=== PATIENT | female | born 1960 | race Caucasian/White ===

== ENCOUNTER 2016-09-23 14:24 | Inpatient (IN) | payer MEDICARE, OTHER ==
--- NOTE | ~2016-09-23 | HP ---
History And Physical [facility] [address] [facility] [place]. [address] NAME: PING LUNA : 56 STATUS : ADM Avis PAT#: [id number] AGE: 56 ADM/REG DATE : 09/23/16 MR#: [id number] REPORT SERV DATE: 09/23/16 DICTATED BY: TAVO BERKOWITZ DATE: 09/23/16 REPORT STATUS : Draft TRANSCRIBED BY: MODL DATE: 09/23/16 DATE OF ADMISSION: 09/23/2016 CHIEF COMPLAINT: Shortness of breath, pedal edema. HISTORY OF PRESENT ILLNESS: Obtained from the patient as well as from emergency room documents. There are no other prior medical records available for us to review. According to the information available, the patient is a 56-year-old woman with past medical history significant for hypertension, significant asthma, apparently on chronic home oxygen therapy for many years, who presented to the emergency room complaining of shortness of breath. The patient's most of her prior workup and medical care has been obtained in [place], [place], where she resides, but she apparently was referred to [facility], Dr. Ibarra, for a cardiac workup as the patient is being a "cleared" for a planned right total knee replacement by Dr. Rolon to be done in the near future here at [facility]. The patient stated that she was referred to Dr. Ibarra, [facility], and she was supposed to be today there, but by the time she made it to his office having some difficulties with exactly parking and where exactly to arrive. She was by her account 15 minutes late, and she was turned down to be seen today, therefore she came to the emergency room as she was short of breath and had pedal edema. Upon arrival in the emergency room, the patient was noticed to be in mild respiratory distress/shortness of breath with mild wheezing noticed by physical exam by emergency room physician and received nebulizer treatment. Furthermore investigations revealed an elevated BNP and pedal edema and therefore, the patient was referred to the Hospitalist Service as admission and workup for dyspnea and shortness of breath. The patient denies any chest pain or palpitations. Denies any fever, any chills, any coughing, any recent change in her medications. She reported "tightness" to the emergency room physician with minimal exertion and with her shortness of breath. The patient stated that she had cardiac catheterization over 15 years ago and supposedly had "leaking valve" at that time. The patient never was told to have a "cardiac condition." She had asthma since childhood and she had chronic home oxygen at 3 L by nasal cannula. Also apparently for over 10 or 15 years when she was told that her oxygen dropped to 83% during nighttime. Again, there are no prior medical records available to us besides the orthopedic surgeries done in [address] Rolon performing left knee arthroscopic surgery. PAST MEDICAL HISTORY: Significant for hypothyroidism; significant for hyperlipidemia; significant for apparently obstructive sleep apnea, on home CPAP machine at home; significant for anxiety and depression; osteoarthritis; GERD; significant for asthma, apparently moderate lifelong since childhood, no recent emergency room visit for asthma exacerbation; and history of obstructive sleep apnea, on home CPAP machine at home. PAST SURGICAL HISTORY: Significant for hysterectomy, cholecystectomy, bilateral tubal ligation in the past, ACDF in 2006, arthroscopic meniscectomy on the left knee in April 2014, history of osteoarthritis and planned right knee replacement apparently scheduled for 10/02/2016 at [facility]. ALLERGIES: MULTIPLE ALLERGIES LISTED IN THE CHART. History And Physical [address] [address] NAME: PING LUNA : 56 STATUS : ADM Avis PAT#: [id number] AGE: 56 ADM/REG DATE : 09/23/16 MR#: [id number] REPORT SERV DATE: 09/23/16 DICTATED BY: TAVO BERKOWITZ DATE: 09/23/16 REPORT STATUS : Draft TRANSCRIBED BY: MODAbhay DATE: 09/23/16 HOME MEDICATIONS: According the list provided, the patient is supposed to take DuoNeb 8 times a day p.r.n. shortness of breath; Combivent and Respimat two puffs inhalation b.i.d.; BuSpar 15 mg p.o. t.i.d.; Klonopin 0.5 mg p.o. q.a.m. and at noon and twice a day and 1 mg p.o. at bedtime; Vivelle 0.05 mg patch twice a week on Thursday and Thursday; Synthroid 125 mcg p.o. daily; Antivert 25 mg p.o. b.i.d.; Prilosec 20 mg p.o. with lunch; Percocet 10/325 one p.o. 6 times a day p.r.n. pain; Lyrica at 25 mg p.o. b.i.d. (please note that the patient has Lyrica listed in allergies but she apparently tolerates 25 mg dose); Crestor 40 mg p.o. at bedtime; Gina-Colace 4 tablets p.o. at bedtime scheduled; Maxzide 25 take half a tablet p.o. daily; fish oil one capsule p.o. t.i.d.; Retaine ophthalmic solution one drop to both eyes 5 times a day; and probiotic one capsule p.o. at bedtime. FAMILY HISTORY: Significant for hypertension. SOCIAL HISTORY: , lives with family. Denies tobacco abuse. She apparently used to smoke in the remote past. Denies alcohol abuse. Denies illicit recreational drug abuse. Presently disabled. REVIEW OF SYSTEMS: As per H and P, otherwise negative in all review of systems. Please note, the comprehensive review of systems was obtained and pertinent positives were including in the H and P. PHYSICAL EXAMINATION: GENERAL: Pleasant, cooperant in mild respiratory distress, presently improved with nebulizer treatment given in the emergency room, very anxious. VITAL SIGNS: Upon arrival in the emergency room, blood pressure 185/83, pulse 80, respiratory rate 24, temperature 98, oxygen saturation 96 to 100% on 3 L via nasal cannula. HEENT: Pupils equal, round, and reactive to light. Extraocular movements intact. Throat, mild erythema. No exudate. NECK: Supple. No JVD. No bruits. No thyromegaly. No lymph nodes. LUNGS: Bilateral air entry with few bibasilar crackles. A few scattered wheezes, apparently improved since initial evaluation in the emergency room. HEART: Positive S1, S2. Regular rate and rhythm. No murmur. No rub. No gallop. PMI not displaced by palpation. ABDOMEN: Positive bowel sounds. Soft, obese, nontender, no guarding, no hepatosplenomegaly. EXTREMITIES: Decreased range of motion. Osteoarthritic changes. No clubbing, no cyanosis. +1 bilateral lower extremity edema up to the mid calves. No calf tenderness. +2 pulses. NEUROLOGIC: Alert and oriented x3. Grossly nonfocal. Anxious. Cranial nerves 2 through 12 grossly intact. Motor strength 5/5 symmetrical bilateral. Deep tendon reflexes 2/2 symmetrical bilateral. BACK: With decreased range of motion, but no focal localized tenderness. No CVA tenderness. SKIN: No bruises, no rashes, no lacerations. SIGNIFICANT LABORATORY DATA: Chest x-ray (personal reading) showed no acute infiltrate. EKG (personal reading) showed normal sinus rhythm at 78 beats per minute. No acute ST elevation. No prior EKG available for comparison. BNP 150. Sodium 142, potassium 3.8, chloride 107, bicarb 31, BUN 11, creatinine 0.77, glucose 105, calcium 9.0. Liver function tests within normal limits. Troponin I less than 0.02. White cell count 10.6, hemoglobin History And Physical [address] [address] NAME: PING LUNA : 56 STATUS : ADM Avis PAT#: [id number] AGE: 56 ADM/REG DATE : 09/23/16 MR#: [id number] REPORT SERV DATE: 09/23/16 DICTATED BY: TAVO BERKOWITZ DATE: 09/23/16 REPORT STATUS : Draft TRANSCRIBED BY: MODL DATE: 09/23/16 12.2, platelet count 257. INR 1.0. ASSESSMENT AND PLAN AND PROBLEM LIST: The patient is a pleasant 56-year-old woman admitted with dyspnea/shortness of breath, likely multifactorial. IMPRESSION: 1. Dyspnea, possible cardiac etiology with shortness of breath, improved with symptomatic treatment and nebulizer treatment. 2. Cardiovascular:. a. Congestive heart failure, likely new onset diastolic dysfunction. b. Hypertension, essential type. c. Pedal edema, new finding/symptoms per patient. All the above, we are going to admit on the Hospitalist Service. We are going to obtain a Cardiology consultation. Strict I's and O's and daily weights with p.o. fluid restriction. Start gentle IV diuresis with Lasix IV, monitor electrolytes, check a 2D echo and obtain old records from the patient's primary care provider. Further evaluation and management as per Cardiology evaluation and consultation. 3. Pulmonary. a. Asthma, possible chronic obstructive pulmonary disease as the patient has been an ex-smoker. b. Obstructive sleep apnea, on home CPAP machine at home. c. Chronic hypoxemic respiratory failure, apparently chronic home oxygen dependent at 3 L by nasal cannula(?). All the above, we are going to continue oxygen supplementation with a target oxygen saturation around 93 to 94%, provide bronchodilator therapy. Encourage usage of her home CPAP machine. Obtain a pulmonology evaluation. 4. For depression and anxiety, probably important component of her clinical presentation, provide emotional support. Continue clonazepam, continue BuSpar. 5. Endocrinologic. a. Hypothyroid with apparently recent FNA biopsy of left thyroid nodule in [place], [place] in [facility]. b. Hyperlipidemia, mixed-type. c. Obesity. For all the above, we are going to continue the patient's home medications including Synthroid, including Crestor and fish oil. Encourage weight loss and dietary changes. Try to obtain prior results and records from the patient's primary care provider. 6. GERD without esophagitis. Continue PPI with the Prilosec/Protonix. Provide dietary changes and antireflux education. 7. Osteoarthritis and deconditioning, provide adequate pain control. Continue her home Percocet. PROGNOSIS: Moderately good for this admission. Discussed with patient and patient's questions were answered in full. Please note, also the patient is a full code at this moment as discussed with the patient at bedside. Please note, also the written H and P and written orders and instructions. History And Physical [address] [address] NAME: PING LUNA : 56 STATUS : ADM Avis PAT#: [id number] AGE: 56 ADM/REG DATE : 09/23/16 MR#: [id number] REPORT SERV DATE: 09/23/16 DICTATED BY: TAVO BERKOWITZ ION DATE: 09/23/16 REPORT STATUS : Draft TRANSCRIBED BY: MODAbhay DATE: 09/23/16 RF/JIM Tavo Berkowitz M.D. / [id number] CC: Katelin Thomas MD
--- NOTE | ~2016-09-23 | CN ---
Consultation Report [facility] [address]. [address] NAME: PING LUNA : 56 STATUS : ADM Avis PAT#: [id number] AGE: 56 ADM/REG DATE : 09/23/16 MR#: [id number] REPORT SERV DATE: 09/24/16 DICTATED BY: KOSTAS BENTON DATE: 09/24/16 REPORT STATUS : Draft TRANSCRIBED BY: MODL DATE: 09/24/16 CONSULT NOTE DATE OF CONSULTATION: 09/24/2016 CHIEF COMPLAINT: Shortness of breath and wheezing. HISTORY OF PRESENT ILLNESS: Mrs. Ping Luna is a 56-year-old white female with a past medical history significant for childhood asthma, chronic hypoxemic respiratory failure, obstructive sleep apnea with CPAP compliance who presents to [facility] emergency room with complaints of worsening shortness of breath and wheezing. It should be noted that the patient has not been hospitalized recently. Mrs. Luna has been seen by multiple pulmonologists in the past. She is currently under the care of Dr. Cynthia Tavarez in [place], [place]. She does require continuous supplemental oxygen at 3 L. The patient is on a pulmonary regimen of Combivent and DuoNeb, which she uses on an as-needed basis. The patient quit smoking, 01/29/2015, prior to this time, she smoked one pack a day for a period of 45 years. She does have known obstructive sleep apnea and has been compliant with CPAP therapy for at least 15 years. She describes her exercise tolerance as being quite limited, having difficulty completing activities of daily living before becoming short of breath. Mrs. Luna has had issues with her right knee and is under consideration of having a total knee replacement under the care of Dr. Rolon. Prior to this surgery, it was felt that she would benefit from a cardiac workup. She did present to Dr. Ibarra's office for evaluation prior to this procedure, but ultimately ended up in the emergency room due to her shortness of breath. Upon arrival in the emergency room, she was found to have a systolic blood pressure of 185. She was afebrile. She had good oxygenation sats. Her white blood cell count was 10,600. Her BNP was 150.3. She did have a chest x-ray, which did not demonstrate any acute pathology. She did receive Lasix and breathing treatments with some improvement in her pulmonary status. For the aforementioned reasons, she has been referred to the Pulmonary Service for further assessment. Currently, the patient's main pulmonary complaint is shortness of breath. This is worse on exertion and relieved by rest. It has been improved with breathing treatments and diuretics. She states that she did have some wheezing when she first came in, but this has resolved as of late. She did have some chest tightness, again this has resolved today. She does confirm childhood asthma as well as previous pneumonias. She denies any purulent sputum production today. The patient does have known hypertension and dyslipidemia. She currently denies any murmurs, angina, or palpitations. She does have longstanding lower extremity edema. She denies any orthopnea, paroxysmal nocturnal dyspnea. Consultation Report [address] [address] NAME: PING LUNA : 56 STATUS : ADM Avis PAT#: [id number] AGE: 56 ADM/REG DATE : 09/23/16 MR#: [id number] REPORT SERV DATE: 09/24/16 DICTATED BY: KOSTAS BENTON DATE: 09/24/16 REPORT STATUS : Draft TRANSCRIBED BY: JIM DATE: 09/24/16 The patient has had some "fullness" in her throat recently. She has undergone a thyroid biopsy with those results still pending. In regard to constitutional symptoms, she currently denies fever, chills, nausea, vomiting, chest pain, or abdominal pain. PAST MEDICAL HISTORY: 1. Hypothyroidism. 2. Dyslipidemia. 3. Anxiety/depression. 4. Osteoarthritis. 5. Gastroesophageal reflux disease. 6. Asthma/COPD. 7. Hypertension. PAST SURGICAL HISTORY: 1. Recent thyroid biopsy. 2. Total abdominal hysterectomy. 3. Cholecystectomy. 4. Bilateral tubal ligation. 5. Left knee surgery on meniscus. 6. Anterior cervical diskectomy and fusion. FAMILY HISTORY: The patient states her father had lung cancer. Her mother had COPD. SOCIAL HISTORY: The patient is . She had three children, only one of which is now living. She had one son in infancy, as well as a 5-year-old child who in a childhood accident. She is currently on disability. She denies any known exposures to dust, silica, or asbestos. Tobacco/alcohol: As previously mentioned, the patient quit, 01/29/2015, prior to this time, she smoked one pack a day for a period of 45 years. She denies any recent alcohol or illicit drug use. MEDICATIONS: 1. DuoNeb. 2. BuSpar 15 mg. 3. Clonazepam 0.5 mg. 4. Estradiol patch. 5. DuoNeb. 6. Levothyroxine 125 mcg. 7. Antivert 25 mg. 8. Omeprazole 20 mg. 9. Endocet 10/325. 10.Pregabalin 25 mg. 11.Rosuvastatin 40 mg. Consultation Report [address] [address] NAME: PING LUNA : 56 STATUS : ADM Avis PAT#: [id number] AGE: 56 ADM/REG DATE : 09/23/16 MR#: [id number] REPORT SERV DATE: 09/24/16 DICTATED BY: KOSTAS BENTON DATE: 09/24/16 REPORT STATUS : Draft TRANSCRIBED BY: JIM DATE: 09/24/16 12.Maxzide 25. ALLERGIES: THE PATIENT HAS AN EXTENSIVE ALLERGY LIST ON THE CHART, WHICH HAS BEEN REVIEWED. REVIEW OF SYSTEMS: Complete review of systems was performed. Pertinent positives and negatives contained within the body of the HPI. PHYSICAL EXAMINATION: VITAL SIGNS: Blood pressure is 122/58, heart rate 78, T-max is 97.8, respiratory rate is 18, SpO2 is 95% on 3 L. GENERAL: Mrs. Luna is an obese 56-year-old white female who is not currently exhibiting any signs of acute distress. SKIN: Skin with appropriate texture and turgor. No rashes, lesions, or ulcers. Nails are clear without cyanosis or clubbing. HEENT: Head: Skull is normocephalic, atraumatic. Face is symmetric. No masses or lesions. Eyes: Sclerae anicteric. Conjunctivae pink without exudates. Extraocular movements are intact. Ears: Auricle and tragus without pain to palpation. Hearing is grossly intact. Nose: Bilateral nasal patency. Throat: The patient has complete dentition in good repair. The patient is Mallampati class 3. NECK: Supple, although redundant tissue appreciated. Thyroid not palpated. LUNGS: Thorax is symmetric with equal chest rise. Inspiratory crackles in the posterior lung pedraza. CARDIOVASCULAR: Regular rate and rhythm. No murmurs, rubs, or gallops. Anterior chest without thrills, heaves, or lifts. ABDOMEN: Soft. Nondistended, nontender. MUSCULOSKELETAL: Full AROM, PROM in all joints. NEUROLOGIC: Cranial nerves 2-12 grossly intact. Good muscle bulk and tone bilaterally. PSYCHIATRIC: The patient demonstrates good judgment and insight. The patient is alert and oriented x3. ACCESSORY DATA: Reveals creatinine 0.93, mag is 1.7. BNP is 54. White blood cell count is 10,600, hemoglobin and hematocrit 13.5 and 41.5. Procalcitonin is 0.05. Chest x-ray does not demonstrate any acute cardiopulmonary process. Echocardiogram reveals estimated left ventricular ejection fraction of 50%-55%. There is a myocardial perfusion scan pending. IMPRESSION: 1. Volume overload. 2. Asthma/chronic obstructive pulmonary disease. 3. Obstructive sleep apnea with CPAP compliance. 4. Chronic hypoxemic respiratory failure secondary to intrinsic lung disease and body habitus. PLAN: 1. At this time, the patient has received diuretic therapy with improvement in her BNP and Consultation Report [address] [address] NAME: PING LUNA : 56 STATUS : ADM Avis PAT#: [id number] AGE: 56 ADM/REG DATE : 09/23/16 MR#: [id number] REPORT SERV DATE: 09/24/16 DICTATED BY: KOSTAS BENTON DATE: 09/24/16 REPORT STATUS : Draft TRANSCRIBED BY: JIM DATE: 09/24/16 overall pulmonary status. 2. In regard to the patient's asthma and COPD, we will place her on a full armamentarium and nebulized medications. Moving forward, she will follow with her established hog counter. She may benefit from pulmonary rehab if that is available to her in her area. 3. In regard to the patient's obstructive sleep apnea, she is compliant with this therapy. She may need a re-titration study in the near future. 4. In regard to chronic hypoxemic respiratory failure, she seems at baseline at this time. We will provide her with humidified oxygen. The aforementioned impression and plan has been discussed with Dr. Montero, who will follow further recommendations. We thank you for this consult and look forward to participating in the care of Mrs. Ping Luna. GBS/MODL Kostas Benton PA-C / [id number] CC: Mani Weber MD
--- NOTE | ~2016-09-23 | DS ---
Discharge Summary [address] [place]. [address] NAME: PING LUNA : 56 STATUS : DIS IN PAT#: [id number] AGE: 56 ADM/REG DATE : 09/25/16 MR#: [id number] REPORT SERV DATE: 09/29/16 DICTATED BY: ADITYA BRANCH DATE: 09/26/16 REPORT STATUS : Draft TRANSCRIBED BY: MODL DATE: 09/26/16 ADMISSION DATE: 09/23/2016 DISCHARGE DATE: 09/26/2016 CONDITION ON DISCHARGE: Stable. DISPOSITION: Discharged to home. ADVICE ON DISCHARGE: To follow up with Cardiology, Pulmonology as scheduled, and also keep the appointment with Dr. Rolon, for scheduled surgery that has already been scheduled for 10/02/2016 for right knee surgery. DIAGNOSES ON DISCHARGE: 1. Shortness of breath/dyspnea secondary to volume overload from likely cor pulmonale, this has resolved. 2. Acute exacerbation of chronic obstructive pulmonary disease, this has resolved. 3. Chronic diagnoses in this patient include COPD, which is chronic. 4. Cor pulmonale with borderline ventricular function with an ejection fraction of 50% to 55% as read in the echocardiogram. 5. Obstructive sleep apnea. The patient is not compliant with CPAP. 6. Chronic hypoxemic respiratory failure for which patient is on oxygen chronically. 7. Generalized anxiety disorder for which patient is benzodiazepine dependent. 8. Chronic low back pain with severe degenerative disk disease of the lower back with herniated intervertebral discs for which patient takes narcotic medications and is narcotic dependent. BRIEF HOSPITAL COURSE: Ms. Luna is a 56-year-old female patient, who was admitted with shortness of breath and volume overload on 09/23/2016. She was admitted, started on diuretics, and echocardiogram was ordered. A Cardiology consult was obtained. The patient also has COPD as this respiratory failure was probably a combination of acute exacerbation of COPD and volume overload from cor pulmonale. Both Cardiology and pulmonology were consulted. Dr. Ibarra saw the patient and Terrance Potts also saw the patient. An echocardiogram that was ordered showed LV systolic function to be 50% to 55% ejection fraction. The patient may have mild right heart failure or cor pulmonale secondary to long- standing COPD at this time which resulted in her volume overload. However, there is nothing to suggest any acute ischemia as of now. The patient also underwent a PET scan or a myocardial PET scan as ordered by Dr. Ibarra. The results of this are pending at this time. The patient's condition remarkably improved and her lungs are extremely clear and she feels better on the day of discharge, and hence, she is being discharged so that she can get her right knee surgery as scheduled on 10/02/[address] Rolon. At this time, the patient has been cleared for surgery, both by Cardiology and by Pulmonology even though she is at high risk for the right knee replacement. The patient states that the pain is so bad and she has so much difficulty walking that she is willing to undergo the surgery. As of now, her discharge medications will be as follows. Discharge Summary [address] [address] NAME: PING LUNA : 56 STATUS : DIS IN PAT#: [id number] AGE: 56 ADM/REG DATE : 09/25/16 MR#: [id number] REPORT SERV DATE: 09/29/16 DICTATED BY: ADITYA BRANCH DATE: 09/26/16 REPORT STATUS : Draft TRANSCRIBED BY: JIM DATE: 09/26/16 HOME MEDICATIONS: All her home medications essentially will be resumed except that she will be on two new medications, Lasix 40 mg p.o. b.i.d. twice a day at least temporarily for the next week or two and K-Dur 10 mEq once a day. I have given her a prescription for both. Other than this, all her home medications will remain the same and these will include: 1. BuSpar 15 mg p.o. t.i.d. for her anxiety. 2. Klonopin as she takes for her anxiety and she takes 1 mg at bedtime and 0.5 mg during daytime on an as-needed basis. 3. Estradiol 0.05 mg topically. 4. Maxzide 37.5/25 one p.o. daily. 5. Levothyroxine 125 mcg p.o. daily. 6. Prilosec 20 mg p.o. daily. 7. Pregabalin 25 mg p.o. b.i.d. 8. Combivent Respimat two puffs twice a day. 9. Meclizine 25 mg p.o. b.i.d. 10.Crestor 40 mg p.o. at bedtime. 11.Fish oil one capsule 3 times a day. 12.Senna four tablets at bedtime. 13.Endocet 10/325 one p.o. four to five times a day, according to patient p.r.n. as she takes this for her chronic severe low back pain from DJD. 14.She also is on DuoNeb. 15.Whether to continue Spiriva or not will be up to Pulmonology. Hence, the patient is discharged home in stable condition with above results as mentioned. The most recent labs I have on this patient include the following: On 09/25/2016, patient's sodium was 137, potassium 3.8, BUN 13, creatinine 1. WBC count 9.2, hemoglobin 13.7, hematocrit 41.6, platelet count of 294. BNP was 54 only, but this was on diuretics. The patient's BNP was elevated at 150 initially. TSH is normal at 1.5. Hence, the patient is discharged home in stable condition, and I have spent about 40 minutes in coordinating discharge care of this patient including [id number] encounter and summarizing this discharge. DICTATED BY: Mani Weber/JIM Aditya Branch M.D. / [id number] CC: Mani Weber MD
--- NOTE | ~2016-09-23 | CN ---
Consultation Report [facility] [address]. [address] NAME: PING LUNA : 56 STATUS : ADM Avis PAT#: [id number] AGE: 56 ADM/REG DATE : 09/23/16 MR#: [id number] REPORT SERV DATE: 09/24/16 DICTATED BY: ANANT PAVON DATE: 09/24/16 REPORT STATUS : Draft TRANSCRIBED BY: MODAbhay DATE: 09/24/16 CARDIOLOGY CONSULTATION DATE OF CONSULTATION: REFERRING REASON: Cardiac evaluation for anticipated orthopedic surgery and shortness of breath. HISTORY OF PRESENT ILLNESS: This is a 56-year-old morbidly obese white female who was initially referred by Dr. Rolon for cardiac evaluation for anticipated elective right knee surgery to [facility]. While she came late for the appointment, she could not be seen that morning and she decided to check into the hospital. She has chronic severe hypoxic respiratory failure, on continuous oxygen, many years. She has reported disabled for orthopedic issues. She has morbid obesity, sleep apnea, hypertension, and reported multiple surgeries on her spine and knees. She is heading for another right knee surgery. She is ambulating with a walker. She has been a heavy smoker until last two years ago. She has chronic dyspnea on exertion with [id number] activity. Denies signs of PND. She is using nocturnal CPAP. The patient has chronic lower extremity edema bilaterally. She has been on triamterene with hydrochlorothiazide for that at home. She also has episodic nonexertional band-type chest pressure, which resolved by itself. Reportedly, she has a normal coronary arteriogram [address] Hernandez in [place], but has been told that she may have some leaky valve. She has occasional palpitations, but no firm diagnosis of arrhythmia was made. She denies any recent syncope. The rest of review of systems is negative. The patient is very poor historian. PAST MEDICAL HISTORY: 1. Chronic respiratory failure, on continuous oxygen of multifactorial etiology. 2. COPD and history of asthma. 3. She has morbid obesity. 4. Poor mobility, patient ambulates with walker due to orthopedic issues. 5. History of several spine surgeries and prior right knee surgery with pending another right knee surgery. 6. Obstructive sleep apnea, on nocturnal CPAP. 7. Hypertension. 8. History of smoking. 9. History of thyroid nodule with recent biopsy. 10.History of palpitations. 11.Depression. SOCIAL HISTORY: The patient is disabled. She is . She has been smoking her entire life until two years ago. She denies drinking alcohol or using street drugs. FAMILY HISTORY: Negative for sudden cardiac deaths or premature coronary artery disease in family. Consultation Report [facility] [id number] [place]. [address] NAME: PING LUNA : 56 STATUS : ADM Avis PAT#: [id number] AGE: 56 ADM/REG DATE : 09/23/16 MR#: [id number] REPORT SERV DATE: 09/24/16 DICTATED BY: ANANT PAVON DATE: 09/24/16 REPORT STATUS : Draft TRANSCRIBED BY: JIM DATE: 09/24/16 ALLERGIES: MULTIPLE INCLUDING PENICILLIN, SULFA, MORPHINE, HYDROCORTISONE, BACITRACIN, AMOXICILLIN, AND BUPRENORPHINE, POLYMYXIN, CODEINE, AND TRAMADOL. HOME MEDICATIONS: Albuterol, BuSpar 15 mg three times a day, Klonopin 0.5 mg twice a day, estradiol, Combivent inhalers, Synthroid 125 mcg once a day, Antivert, Prilosec, Lyrica 25 mg twice a day, Crestor 40 mg once a day, fish oil, and probiotic. PHYSICAL EXAMINATION: GENERAL: No acute distress, morbidly obese female. VITAL SIGNS: Blood pressure 95/50, heart rate 67 and regular. LUNGS: Decreased breath sounds, but no crackles. ABDOMEN: Morbidly obese, distended, nontender. EXTREMITIES: Lower extremity 1+ edema around the ankle with decreased pedal pulses bilaterally. DATA: Electrocardiogram revealed sinus bradycardia, 59 beats per minute. Nonspecific T-wave changes and no arrhythmia. Leukocytosis 10,000. BNP initially , now 58. Troponin x2 negative. Electrolytes are otherwise normal. Chest x-ray, no acute pathology. ASSESSMENT/PLAN: 1. Chronic respiratory failure of multifactorial etiology. 2. Nonexertional chest pain, likely atypical chest pain. 3. Morbid obesity. 4. Orthopedic issues with a pending right knee surgery. The patient has already been put on fluid restriction. She should ambulate. She already received some intravenous Lasix. Due to her body size, she may be best suited with a PET stress and she has a pending echocardiogram today. I have not appreciated a significant murmur, however. Unfortunately, patient had breakfast this morning as we will have to proceed with a PET stress tomorrow. She has not had any cardiac stress testing over the last many years. Thank you for the consult. TRISTEN/JIM Anant Pavon M.D. / [id number] Consultation Report [address] [place]. [address] NAME: PING LUNA : 56 STATUS : ADM Avis PAT#: [id number] AGE: 56 ADM/REG DATE : 09/23/16 MR#: [id number] REPORT SERV DATE: 09/24/16 DICTATED BY: ANANT PAVON DATE: 09/24/16 REPORT STATUS : Draft TRANSCRIBED BY: JIM DATE: 09/24/16 CC: Mani Weber MD
[~2016-09-23 14:24] MED LIST: BUSPAR15 M1 PO; COMBIVENT RESPIM4 GM INH; CRESTOR40 MG PO; DUONEB INH; KLONO1 PO; LEVOTHYROXIN100 MCG PO; LYRICA25 PO; MAX25 PO; MCZ25 PO; PERCOCET1 TA4 PO; PERI-COLACE1 TAB PO; PRILO PO; VIVELLE SY0.05 MG/24 TOP
[2016-09-23 16:51] LABS: BASOPHILS 0.5 %; BASOPHILS ABSOLUTE 0.05 10/3/uL (0.0-0.16); EOSINOPHILS 4.4 %; EOSINOPHILS ABSOLUTE 0.46 10/3/uL (0.0-0.53); HEMOGLOBIN 12.2 g/dL (12.0-16.0); IMMATURE GRANULOCYTES 0.5 %; IMMATURE GRANULOCYTES ABSOLUTE 0.05 10/3/uL (0.0-0.11); LYMPHOCYTES 24.5 %; LYMPHOCYTES ABSOLUTE 2.59 10/3/uL (0.67-4.30); MEAN CORPUS HGB CONC 33.1 g/dL (32.0-36.0); MEAN CORPUSCULAR HEMOGLOB 28.8 pg (26.0-34.0); MEAN CORPUSCULAR VOLUME 87.2 fL (80-100); MEAN PLATELET VOLUME 9.1 fL (9.2-13.0); MONOCYTES 8.3 %; MONOCYTES ABSOLUTE 0.88 10/3/uL (0.21-1.20); NEUTROPHILS 61.8 %; NEUTROPHILS ABSOLUTE 6.53 10/3/uL (2.02-8.40); PLATELET COUNT 257 10/3/uL (150-400); RBC DISTRIBUTION WIDTH 14.5 % (12.0-16.0); RED CELL COUNT 4.23 10/6/uL (4.0-5.6); WHITE BLOOD CELLS 10.6 10/3/uL (4.5-10.5)
[2016-09-23 16:52] LABS: HEMATOCRIT 36.9 % (36.0-48.0); MANUAL DIFF NO %
[2016-09-23 17:05] LABS: PARTIAL THROMBO TIME 27.1 SEC (22.5-37.2); PROTIME (NOT ORD) 13.5 SEC (12.0-14.5)
[2016-09-23 17:10] LABS: A/G RATIO 0.9 (0.7-1.9); ALBUMIN 3.3 G/DL (3.5-5.0); ALKALINE PHOSPHATASE 70 U/L (45-117); BUN (BLOOD UREA NITROGEN) 11 MG/DL (6-23); CHLORIDE, SERUM 107 MMOL/L (96-112); CO2 (CARBON DIOXIDE) 31 MMOL/L (24-34); CREATININE 0.77 MG/DL (0.55-1.02); GFR AFRICAN AMERICAN 99 ML/MIN (>=60); GFR NON AFRICAN AMERICAN 85 ML/MIN (>=60); GLOBULIN 3.6 G/DL (2.5-4.1); GLUCOSE, SERUM 105 MG/DL (60-99); POTASSIUM, SERUM 3.8 MMOL/L (3.5-5.3); SGOT(AST) 22 U/L (5-40); SGPT(ALT) 22 U/L (5-65); SODIUM, SERUM 142 MMOL/L (135-148); TOTAL BILIRUBIN 0.5 MG/DL (0-1.2); TOTAL PROTEIN 6.9 G/DL (6.0-8.5); TROPONIN I <0.02 NG/ML (<0.05)
[2016-09-23] MEDS ORDERED: MCZ25 PO (18:01)
[2016-09-23] MEDS ORDERED: SYN125 PO (18:01)
[2016-09-23] MEDS ORDERED: CRESTOR40 MG PO (18:03)
[2016-09-23] MEDS ORDERED: KLONO1 PO (18:03)
[2016-09-23] MEDS ORDERED: KLONO5 PO (18:03)
[2016-09-23] MEDS ORDERED: PRILO PO (18:04)
[2016-09-23] MEDS ORDERED: BUSPAR15 M1 PO (18:04)
[2016-09-23] MEDS ORDERED: MAX25 PO (18:05)
[2016-09-23] MEDS ORDERED: FISH OIL PO (18:05)
[2016-09-23] MEDS ORDERED: ENDOCET1 TA3 PO (18:06)
[2016-09-23] MEDS ORDERED: PERI-COLACE1 TAB PO (18:06)
[2016-09-23] MEDS ORDERED: COMBIVENT RESPIM4 GM INH (18:07)
[2016-09-23] MEDS ORDERED: LYRICA25 PO (18:07)
[2016-09-23] MEDS ORDERED: [UNRECOGNIZED DRUG - OTHER] OPH (18:08)
[2016-09-23] MEDS ORDERED: VIVELLE SY0.05 MG/24 TOP (18:08)
[2016-09-23] MEDS ORDERED: PROBIOTIC PO (18:09)
[2016-09-23] MEDS ORDERED: DUONEB INH (18:10)
[2016-09-23 20:27] LABS: WBC (NOT ORDERED) (RFLEX) 0 (0-5)
[2016-09-23 20:38] LABS: ASCORBIC ACID (UR NOT ORDER) NEG (NEG); BILIRUBIN, URINE NEGATIVE (NEG); ER URINALYSIS TAT 0 Hrs 16 Mins; KETONE, URINE NEGATIVE (NEG); LEUKOCYTE ESTERASE(NOT OR NEG (NEG); NITRITE (URINE) NEG (NEG)
[2016-09-23 22:00] LABS: CPK 119 U/L (0-200); FREE T4 1.22 NG/DL (0.76-1.46); PHOSPHORUS, SERUM 3.9 MG/DL (2.5-4.5)
[2016-09-23 22:01] LABS: CK-MB 1.6 NG/ML
[2016-09-23 22:08] LABS: PROCALCITONIN <0.05 ng/mL (<0.5)
[2016-09-24 06:44] LABS: BASOPHILS 0.4 %; BASOPHILS ABSOLUTE 0.04 10/3/uL (0.0-0.16); EOSINOPHILS 5.8 %; EOSINOPHILS ABSOLUTE 0.61 10/3/uL (0.0-0.53); HEMATOCRIT 41.7 % (36.0-48.0); HEMOGLOBIN 13.5 g/dL (12.0-16.0); IMMATURE GRANULOCYTES 0.3 %; IMMATURE GRANULOCYTES ABSOLUTE 0.03 10/3/uL (0.0-0.11); LYMPHOCYTES 30.3 %; MANUAL DIFF NO %; MEAN CORPUS HGB CONC 32.4 g/dL (32.0-36.0); MEAN CORPUSCULAR HEMOGLOB 28.8 pg (26.0-34.0); MEAN CORPUSCULAR VOLUME 88.9 fL (80-100); MEAN PLATELET VOLUME 8.9 fL (9.2-13.0); MONOCYTES ABSOLUTE 0.95 10/3/uL (0.21-1.20); NEUTROPHILS 54.2 %; NEUTROPHILS ABSOLUTE 5.72 10/3/uL (2.02-8.40); PLATELET COUNT 259 10/3/uL (150-400); RBC DISTRIBUTION WIDTH 14.4 % (12.0-16.0); RED CELL COUNT 4.69 10/6/uL (4.0-5.6); WHITE BLOOD CELLS 10.6 10/3/uL (4.5-10.5)
[2016-09-24 07:03] LABS: ALBUMIN 3.6 G/DL (3.5-5.0); BUN (BLOOD UREA NITROGEN) 12 MG/DL (6-23); CALCIUM, SERUM 9.2 MG/DL (8.5-10.4); CHOL/HDL RATIO(NOT ORDER) 3.4 (0-5); CHOLESTEROL 164 MG/DL (< 200); CO2 (CARBON DIOXIDE) 30 MMOL/L (24-34); CREATININE 0.93 MG/DL (0.55-1.02); GFR AFRICAN AMERICAN 79 ML/MIN (>=60); GFR NON AFRICAN AMERICAN 68 ML/MIN (>=60); HDL CHOLESTEROL 48 MG/DL (> 49); LDL CHOLESTEROL 85 MG/DL (< 130); NON-HDL CHOLESTEROL 116 MG/DL (< 160); PHOSPHORUS, SERUM 4.2 MG/DL (2.5-4.5); POTASSIUM, SERUM 3.4 MMOL/L (3.5-5.3); SODIUM, SERUM 136 MMOL/L (135-148); TRIGLYCERIDE 158 MG/DL (< 150); TROPONIN I <0.02 NG/ML (<0.05)
[2016-09-24 07:05] LABS: CHLORIDE, SERUM 97 MMOL/L (96-112); CK-MB 1.8 NG/ML; CPK 144 U/L (0-200); GLUCOSE, SERUM 151 MG/DL (60-99)
[2016-09-25 06:40] LABS: BASOPHILS 0.7 %; BASOPHILS ABSOLUTE 0.06 10/3/uL (0.0-0.16); EOSINOPHILS 5.5 %; EOSINOPHILS ABSOLUTE 0.51 10/3/uL (0.0-0.53); HEMATOCRIT 41.6 % (36.0-48.0); HEMOGLOBIN 13.7 g/dL (12.0-16.0); IMMATURE GRANULOCYTES 0.2 %; IMMATURE GRANULOCYTES ABSOLUTE 0.02 10/3/uL (0.0-0.11); LYMPHOCYTES 27.5 %; LYMPHOCYTES ABSOLUTE 2.54 10/3/uL (0.67-4.30); MANUAL DIFF NO %; MEAN CORPUS HGB CONC 32.9 g/dL (32.0-36.0); MEAN CORPUSCULAR VOLUME 87.9 fL (80-100); MEAN PLATELET VOLUME 9.1 fL (9.2-13.0); MONOCYTES 10.6 %; MONOCYTES ABSOLUTE 0.98 10/3/uL (0.21-1.20); NEUTROPHILS 55.5 %; NEUTROPHILS ABSOLUTE 5.12 10/3/uL (2.02-8.40); PLATELET COUNT 294 10/3/uL (150-400); RBC DISTRIBUTION WIDTH 14.1 % (12.0-16.0); RED CELL COUNT 4.73 10/6/uL (4.0-5.6); WHITE BLOOD CELLS 9.2 10/3/uL (4.5-10.5)
[2016-09-25 06:52] LABS: BUN (BLOOD UREA NITROGEN) 13 MG/DL (6-23); CHLORIDE, SERUM 99 MMOL/L (96-112); GFR AFRICAN AMERICAN 72 ML/MIN (>=60); GFR NON AFRICAN AMERICAN 62 ML/MIN (>=60); GLUCOSE, SERUM 125 MG/DL (60-99); PHOSPHORUS, SERUM 4.2 MG/DL (2.5-4.5); POTASSIUM, SERUM 3.8 MMOL/L (3.5-5.3); SODIUM, SERUM 137 MMOL/L (135-148)
[2016-09-25 06:53] LABS: CO2 (CARBON DIOXIDE) 35 MMOL/L (24-34)
[2016-09-26] MEDS ORDERED: KLOR-CON 1010 MEQ PO (11:04)
[2016-09-26] MEDS ORDERED: L40 PO (11:04)
== END 2016-09-26 14:01 | disposition home or self-care (01) | DRG 291 ==
LOC: ER 14:24 → 7NO 20:09
PROVIDERS: Emergency Medicine; Internal Medicine; Physician Assistant Medical
DX: I11.0 Hypertensive heart disease with heart failure (principal); J96.21 Acute and chronic respiratory failure with hypoxia; I27.81 Cor pulmonale (chronic); J44.1 Chronic obstructive pulmonary disease with (acute) exacerbation; F11.20 Opioid dependence, uncomplicated; F13.20 Sedative, hypnotic or anxiolytic dependence, uncomplicated; Z68.42 Body mass index [BMI] 45.0-49.9, adult; I50.31 Acute diastolic (congestive) heart failure; Z99.81 Dependence on supplemental oxygen; Z87.891 Personal history of nicotine dependence; J45.909 Unspecified asthma, uncomplicated; G47.33 Obstructive sleep apnea (adult) (pediatric); F32.9 Major depressive disorder, single episode, unspecified; E03.9 Hypothyroidism, unspecified; K21.9 Gastro-esophageal reflux disease without esophagitis; M19.90 Unspecified osteoarthritis, unspecified site; E78.5 Hyperlipidemia, unspecified; M17.12 Unilateral primary osteoarthritis, left knee; F41.1 Generalized anxiety disorder; G89.29 Other chronic pain; M54.5 Low back pain; E66.01 Morbid (severe) obesity due to excess calories; Z88.8 Allergy status to other drugs, medicaments and biological substances; Z88.0 Allergy status to penicillin; Z88.2 Allergy status to sulfonamides; Z88.5 Allergy status to narcotic agent; Z88.1 Allergy status to other antibiotic agents; Z91.09 Other allergy status, other than to drugs and biological substances; E83.42 Hypomagnesemia
CPT/HCPCS: 71010; 78492; 80048; 80053; 80061; 80069; 81001; 82550; 82553; 83735; 83880; 84100; 84132; 84145; 84439; 84443; 84484; 85025; 85610; 85730; 93005; 93017; 94640; 99285; A9270-GY; A9555; C8929; J2785; J3475; Q9957

== ENCOUNTER 2016-10-02 08:38 | Inpatient (IN) | payer OTHER, MEDICARE ==
--- NOTE | ~2016-10-02 | DS ---
Discharge Summary [facility] [address] [place]. [address] NAME: PING LUNA : 56 STATUS : DIS IN PAT#: [id number] AGE: 56 ADM/REG DATE : 10/02/16 MR#: [id number] REPORT SERV DATE: 10/10/16 DICTATED BY: IRMA ROBERTS DATE: 10/10/16 REPORT STATUS : Draft TRANSCRIBED BY: JIM DATE: 10/10/16 Data Collection from hospitalization DISCHARGE DIAGNOSES: 1. Severe right knee degenerative joint disease. 2. Diabetes. 3. Hypertension. 4. Morbid obesity. 5. Asthma. 6. Chronic obstructive pulmonary disease. 7. Hypothyroidism. 8. Hyperlipidemia. 9. Obstructive sleep apnea. 10.Gastroesophageal reflux disease. 11.Former smoker. 12.Chronic benzodiazepines. 13.Chronic narcotics. 14.Depression and anxiety. CONSULTATIONS: None. PROCEDURES PERFORMED: Right posterior stabilized total knee replacement, cemented, 10/02/2016. PATHOLOGY: ( ). MEDICATIONS: DuoNeb inhaled solution one nebulized inhaler eight times a day as needed, BuSpar 15 mg three times a day, Klonopin 0.5 mg with breakfast and lunch and 1 mg at bedtime, Valium one to two tablets every six hours as needed, Vivelle 0.05 mg topically on Tuesdays and Fridays, Lasix 40 mg twice a day, Combivent two puffs via inhaler twice a day, Synthroid 125 mcg before breakfast, Antivert 25 mg twice a day, Prilosec 20 mg with lunch, Zofran one tablet every eight hours as needed, Endocet one tablet six times a day as needed, Roxicodone one to two tablets every four hours as needed, Klor-Con 10 mEq daily, Lyrica 25 mg twice a day, Crestor 40 mg at bedtime, Gina-Colace four tablets at bedtime, Maxzide half tablet every morning, fish oil one capsule three times a day, Retaine ophthalmic solution one drop five times a day as needed, probiotic one capsule at bedtime, and Coumadin one tablet daily. CONDITION AT DISCHARGE: Stable. DISPOSITION: The patient was discharged home on an 1800-calorie diabetic diet with activities as instructed. She would follow up with me two weeks following discharge. She was to call her primary care physician for a potassium check. HOSPITAL COURSE: This is a 56-year-old female who said that she has had progressively increasing pain and that she had fallen twice in the past three weeks prior to admission. The patient does have severe right knee degenerative joint disease. Treatment options were discussed and it was elected to proceed with surgical intervention. She was admitted to the Discharge [address] [address] NAME: PING LUNA : 56 STATUS : DIS IN PAT#: [id number] AGE: 56 ADM/REG DATE : 10/02/16 MR#: [id number] REPORT SERV DATE: 10/10/16 DICTATED BY: IRMA ROBERTS DATE: 10/10/16 REPORT STATUS : Draft TRANSCRIBED BY: JIM DATE: 10/10/16 hospital at this time for further evaluation and treatment. Upon admission, she was taken to the operating room where she underwent the above-mentioned procedure. She tolerated this well, and there were no complications. On postop day #1, she was evaluated by Occupational and Physical Therapy. She did complain of some muscle spasms in the right leg. She said she had not slept well due to the pain and spasms. MANJU hose were in place. She was to use her BiPAP at bedtime. Pepcid was stopped. Protonix was continued. On postop day #2, she was complaining that she felt her bruno were infected. Her dressings were removed. The bruno were intact. The was no drainage or redness noted. The dressings were changed. She was encouraged to mobilize with Physical Therapy. Discharge planning was performed on 10/05/2016. We discussed her low potassium and the need for her to follow up with her primary care physician. Lasix and triamterene- hydrochlorothiazide were held. Potassium supplementation was going to be given and continued. Discharge instructions were given. Due to her improved and stable condition, she was discharged home with the above-stated instructions. Information collected by: Monse Schroeder I submit the above information as my discharge summary. SANGEETA/JIM Nancy Roberts M.D. / [id number] CC: Mani Burgos MD
--- NOTE | ~2016-10-02 | OP ---
Record Of Operation [facility] [address] [place]. [address] NAME: PING LUNA : 56 STATUS : ADM IN PAT#: [id number] AGE: 56 ADM/REG DATE : 10/02/16 MR#: [id number] REPORT SERV DATE: 10/02/16 DICTATED BY: IRMA ROBERTS DATE: 10/02/16 REPORT STATUS : Draft TRANSCRIBED BY: MODL DATE: 10/02/16 DATE OF PROCEDURE: 10/02/2016 PREOPERATIVE DIAGNOSIS: Severe right knee degenerative joint disease. POSTOPERATIVE DIAGNOSIS: Severe right knee degenerative joint disease. OPERATION: Right posterior stabilized total knee replacement, cemented. SIDE: Right. SIZE: See chart. ANESTHESIA: See chart. ESTIMATED BLOOD LOSS: About 10 mL. TOURNIQUET TIME: Approximately 1 hour and 10 minutes. COMPLICATIONS: None. SPECIMENS: Articular surfaces. PROCEDURE: The patient was appropriately identified and marked. The operative side agreed with the consent form and it was checked by all members of the surgical team. The patient was taken to the operating room and anesthesia was induced per the anesthesiologist. The patient was carefully transferred to the operating table without incident. The patient received appropriate prophylactic antibiotics and a Blankenship catheter was placed in the standard sterile technique. The patient was then carefully positioned, padded, prepped and draped in the normal sterile fashion. The operative leg had been appropriately identified and checked by all members of the operating team against the consent form and found to be the correct limb. The patient's lower extremity was then exsanguinated with an Mak wrap and a tourniquet was inflated to 350 mm/Hg. Sharp dissection was carried out through a straight midline longitudinal incision and electrocautery through the fat. Sharp quad splitting approach was carried out between about the medial 10 percent of the tendon and the lateral 90 percent of the tendon and down around the medial aspect of the patella and then 1 cm medial to the tibial tubercle. The patella was carefully everted and the posterior fat pad was excised and gentle MCL elevation was carried out off the proximal medial tibia subperiosteally. IM guide was placed in the distal femur after using the appropriate drill. The distal femoral cutting guide was held with 2 pins and the distal cut made. Meniscal fragments and the ACL and the PCL were excised with electrocautery, carefully staying anterior to the posterior fat pad. The proximal tibial alignment guide was set appropriately and the proximal tibial cut made. Spacer block verified full extension with excellent mediolateral balance. Sizing guide was used to place 2 drill holes in the distal femur and the four-in-one cutting block was then placed, impacted and checked Record Of Operation [facility] [address] [place]. [address] NAME: PING LUNA : 56 STATUS : ADM IN PAT#: [id number] AGE: 56 ADM/REG DATE : 10/02/16 MR#: [id number] REPORT SERV DATE: 10/02/16 DICTATED BY: IRMA ROBERTS DATE: 10/02/16 REPORT STATUS : Draft TRANSCRIBED BY: MODL DATE: 10/02/16 to be sure it would not notch with an víctor wing and it was held with 2 pins. The anterior cut, posterior cut, anterior chamfer and posterior chamfer cuts were made. The pins were removed and the block was removed. A posterior release was carried out with a curved 3/4 inch osteotome staying right on the bone posteriorly. The box-cut guide was then placed, impacted and held with 2 pins and a reciprocating saw was used to cut out the box. With the trial components in place, there was excellent medial/lateral balance. The patella was then measured with a caliper, cut first with an oscillating saw and then reamed with a patella reamer. With the trial patella in place, there was excellent patellar tracking. Rotation was marked on the tibia and the tibia prepared with a drill and stamp chisel. All surfaces were then copiously irrigated with pulsatile lavage, carefully dried and then vacuum-mixed cement was pressurized with a cement gun in a doughy phase. The tibial component was placed, impacted and excess cement was removed. The cement was then pressurized in the femur and placed on the posterior runners of the femoral component, which was placed, impacted and excess cement removed and the knee was brought out into extension on a trial spacer. The cement was then pressurized in the patella. Patellar component was then placed, clamped and excess cement was removed. Once all cement was hardened, the knee was taken through range of motion. Further extruded cement was removed with a small osteotome. Then based on the trial inserts, we decided on the actual insert, which was placed in the standard fashion and held with a locking mechanism. The knee was then copiously irrigated and then closed in a layered fashion over a medium Hemovac drain superolaterally with interrupted #1 in the deep fascia, 2-0 subcutaneous and bruno in the skin. The wounds were dressed sterilely and the tourniquet was deflated. The patient was then awakened and taken to the postanesthesia care unit without incident. All counts were correct at the end of the case. ELINA/JIM Nancy Roberts M.D. / [id number] CC: Nancy Roberts M.D.
[~2016-10-02 08:38] MED LIST changes: +ENDOCET1 TA3 PO; +FISH OIL PO; +KLONO5 PO; +KLOR-CON 1010 MEQ PO; +L40 PO; +PROBIOTIC PO; +SYN125 PO; +[UNRECOGNIZED DRUG - OTHER] OPH
[2016-10-02 09:16] LABS: PROTIME (NOT ORD) 13.3 SEC (12.0-14.5)
[2016-10-03 04:29] LABS: HEMATOCRIT 35.1 % (36.0-48.0); HEMOGLOBIN 11.5 g/dL (12.0-16.0)
[2016-10-03 04:30] LABS: INTERNATIONAL NORMAL RATI 1.1 UNITS (-); PROTIME (NOT ORD) 13.8 SEC (12.0-14.5)
[2016-10-03 04:43] LABS: BUN (BLOOD UREA NITROGEN) 15 MG/DL (6-23); CALCIUM, SERUM 8.6 MG/DL (8.5-10.4); CHLORIDE, SERUM 98 MMOL/L (96-112); CO2 (CARBON DIOXIDE) 29 MMOL/L (24-34); CREATININE 0.88 MG/DL (0.55-1.02); GFR AFRICAN AMERICAN 84 ML/MIN (>=60); GFR NON AFRICAN AMERICAN 72 ML/MIN (>=60); GLUCOSE, SERUM 129 MG/DL (60-99); POTASSIUM, SERUM 3.5 MMOL/L (3.5-5.3); SODIUM, SERUM 136 MMOL/L (135-148)
[2016-10-04 06:34] LABS: HEMOGLOBIN 10.4 g/dL (12.0-16.0)
[2016-10-04 06:40] LABS: INTERNATIONAL NORMAL RATI 1.5 UNITS (-)
[2016-10-04 06:45] LABS: BUN (BLOOD UREA NITROGEN) 13 MG/DL (6-23); CALCIUM, SERUM 8.9 MG/DL (8.5-10.4); CHLORIDE, SERUM 94 MMOL/L (96-112); CO2 (CARBON DIOXIDE) 36 MMOL/L (24-34); CREATININE 0.86 MG/DL (0.55-1.02); GFR AFRICAN AMERICAN 86 ML/MIN (>=60); GFR NON AFRICAN AMERICAN 74 ML/MIN (>=60); GLUCOSE, SERUM 128 MG/DL (60-99); POTASSIUM, SERUM 3.1 MMOL/L (3.5-5.3); SODIUM, SERUM 139 MMOL/L (135-148)
[2016-10-04 19:24] LABS: POTASSIUM, SERUM 3.6 MMOL/L (3.5-5.3)
[2016-10-05 05:51] LABS: INTERNATIONAL NORMAL RATI 1.5 UNITS (-); PROTIME (NOT ORD) 18.4 SEC (12.0-14.5)
[2016-10-05 05:57] LABS: BUN (BLOOD UREA NITROGEN) 13 MG/DL (6-23); CALCIUM, SERUM 9.1 MG/DL (8.5-10.4); CHLORIDE, SERUM 97 MMOL/L (96-112); CO2 (CARBON DIOXIDE) 34 MMOL/L (24-34); CREATININE 0.92 MG/DL (0.55-1.02); GFR AFRICAN AMERICAN 80 ML/MIN (>=60); GFR NON AFRICAN AMERICAN 69 ML/MIN (>=60); GLUCOSE, SERUM 117 MG/DL (60-99); SODIUM, SERUM 135 MMOL/L (135-148)
[2016-10-05 06:00] LABS: HEMATOCRIT 34.6 % (36.0-48.0); HEMOGLOBIN 11.1 g/dL (12.0-16.0)
[2016-10-05] MEDS ORDERED: OXYCOD PO (13:32)
[2016-10-05] MEDS ORDERED: ZOFRAN4 PO (13:33)
[2016-10-05] MEDS ORDERED: C5 PO (13:34)
[2016-10-05] MEDS ORDERED: V2 PO (13:35)
== END 2016-10-05 15:00 | disposition home or self-care (01) | DRG 470 ==
LOC: SDC/OF 08:38 → PACU 13:07 → 3JRC 14:10
PROVIDERS: Specialist
PROC: 3E0T3CZ (ICD-10-PCS; 2016-10-02)
PROC: 0SRC0J9 Replacement of Right Knee Joint with Synthetic Substitute, Cemented, Open Approach (ICD-10-PCS; principal; 2016-10-02 10:45)
DX: M17.11 Unilateral primary osteoarthritis, right knee (principal); Z99.81 Dependence on supplemental oxygen; Z68.42 Body mass index [BMI] 45.0-49.9, adult; E87.6 Hypokalemia; E66.01 Morbid (severe) obesity due to excess calories; I10 Essential (primary) hypertension; J45.909 Unspecified asthma, uncomplicated; J44.9 Chronic obstructive pulmonary disease, unspecified; E03.9 Hypothyroidism, unspecified; E78.5 Hyperlipidemia, unspecified; G47.33 Obstructive sleep apnea (adult) (pediatric); K21.9 Gastro-esophageal reflux disease without esophagitis; Z87.891 Personal history of nicotine dependence
CPT/HCPCS: 80048; 82962; 83735; 84132; 85014; 85018; 85610; 87641; 88305; 88311; 94640; 97110-GP; 97116-GP; 97161-GP; 97165-GO; A9270-GY; C1776; G8978-CK-GP; G8979-CI-GP; G8987-CJ-GO; G8988-CI-GO; G8989-CI-GO; J0690; J1170; J2250; J2405; J2795; J3010